=== PATIENT | female | born 1960 | race Caucasian/White ===

== ENCOUNTER 2022-01-09 05:10 | Day surgery (SDC) | payer MEDICAID ==
[~2022-01-09] VITALS: Ht 165.1 cm; Wt 104.3 kg
[2022-01-09] MEDS: MIDAZOLAM HCL 5 MG/5 ML VIAL ONE ×3 (07:43→07:48)
[2022-01-09] MEDS: MEPERIDINE 100 MG INJ. 100 MG/ML VIAL ONE ×2 (07:43→07:51)
[2022-01-09] MEDS ORDERED: MIDAZOLAM HCL 5 MG/5 ML VIAL ONE (07:51)
[2022-01-09 11:40] VITALS: BP_SYST 145
== END 2022-01-09 08:35 | disposition home or self-care (01) ==
LOC: SMU 05:10 → SDS 05:10
PROVIDERS: ATTEND Internal Medicine Gastroenterology
DX: E66.01 Morbid (severe) obesity due to excess calories (principal); K21.00 Gastro-esophageal reflux disease with esophagitis, without bleeding; K29.50 Unspecified chronic gastritis without bleeding; K44.9 Diaphragmatic hernia without obstruction or gangrene; E10.9 Type 1 diabetes mellitus without complications; Z79.4 Long term (current) use of insulin; Z68.38 Body mass index [BMI] 38.0-38.9, adult
CPT/HCPCS: 36415 ×2; 43239; 87081; 82962; 88305; 88312; 88313; 99152; U0003; G0378; J2250; J2175